=== PATIENT | male | born 1960 | race Caucasian/White ===

== ENCOUNTER 2020-08-03 11:05 | Emergency (ER) | payer BC ==
[~2020-08-03] VITALS: Ht 188 cm; Wt 95.0 kg
--- NOTE | 2020-08-03 11:12 | PHYS DOC ---
Past History Past Medical History: Arthritis (Rheumatoid) Adult General HPI HPI Patient is a pleasant 59-year-old male who presents for abdominal pain. Onset was this morning shortly after eating breakfast. Nothing known makes better, patient reports certain abdominal movements and palpation under right side of his rib cage make worse. Pain described as sharp without radiation and 5 out of 10 in severity. Timing of symptoms have been intermittent since onset, reports currently being asymptomatic. Patient called PCP and was advised to set up virtual appointment; however, patient concerned this could be his appendix prompting him to seek evaluation at our ER today. Patient denies any fever, constitutional symptoms, COVID-19 contacts, headache, chest pain, shortness of breath, nausea, vomit, diarrhea, changes in urination or bowel function, UTI- like symptoms, he has no history of kidney stones Review of Systems Review of Systems Fourteen body systems of review of systems have been reviewed. See HPI for pertinent positives and negative responses, other jin all other systems are negative, non-pertinent or non-contributory Physical Exam Physical Exam Constitutional: Well developed, well nourished, no acute distress, non-toxic appearance. HENT: Normocephalic, atraumatic, bilateral external ears normal, oropharynx moist, no oral exudates, nose normal. Eyes: PERRLA, EOMI, conjunctiva normal, no discharge. Neck: Normal range of motion, no tenderness, supple, no stridor. Cardiovascular: Heart rate regular, sinus rhythm, no murmurs rubs or gallops Lungs & Thorax: Bilateral breath sounds clear to auscultation Abdomen: Bowel sounds normal, soft, positive Herbert sign, no guarding, no rebound no masses, no pulsatile masses. Nonsurgical abdomen, no peritoneal signs Skin: Warm, dry, no erythema, no rash. Back: No tenderness, no CVA tenderness. Extremities: No tenderness, no cyanosis, no clubbing, ROM intact, no edema. Neurologic: Alert and oriented X 3, grossly normal motor & sensory function, no focal deficits noted. Psychologic: Affect normal, judgement normal, mood normal. Current Patient Data Vital Signs Vital Signs Date Time Temp Pulse Resp B/P (MAP) Pulse Ox O2 Delivery O2 Flow Rate FiO2 08/03/20 11:05 98.4 76 18 139/76 (97) 99 Room Air EKG EKG [] Radiology/Procedures Radiology/Procedures PROCEDURE: ABDOMEN LTD EXAM: Right upper quadrant abdominal Ultrasound INDICATION: Reason: RUQ and RLQ pain / Spl. Instructions: / History: TECHNIQUE: Real-time ultrasound of the right upper quadrant abdomen was performed with permanent freeze-frame documentation. COMPARISON: None FINDINGS: BILIARY:?Gallbladder is unremarkable. No biliary ductal dilatation. The common bile duct measures 0.4 cm. OTHER: Visualized liver and pancreas are unremarkable, although contrast is not well seen due to bowel gas. Liver measures 14.9 cm in length. IVC and abdominal aorta are poorly visualized also due to bowel gas. Right kidney is normal measuring 11.9 x 6.3 x 5.7 cm. IMPRESSION: Negative right upper quadrant abdominal ultrasound. No evidence of cholelithiasis or acute cholecystitis. Electronically signed by: Samuel Ott MD (08/03/2020 12:05 PM) [id number] Course & Med Decision Making Course & Med Decision Making Ambulatory well-appearing patient seen on immediate ER arrival ABCs unremarkable Comprehensive history and physical exam obtained, positive Herbert sign with concern for gallbladder pathology, discussed utility of CT but joint decision to pursue ultrasound Discussed grossly negative findings from ultrasound. Discussed this is a limited exam and might not act accurately capture acute gallbladder or appendix pathology Nonetheless, patient remained asymptomatic throughout visit today. I educated patient on importance of monitoring symptomology and following up with PCP in upcoming 1 to 10 days time I discussed potential need for outpatient diagnostic studies such as MRCP etc. to better classify patient's gallbladder tree and need for AAA screening etc. Strict return precautions discussed with good understanding by patient, all questions and concerns addressed prior to ER departure in stable condition Dragon Disclaimer Dragon Disclaimer This electronic medical record was generated, in whole or in part, using a voice recognition dictation system. Departure Departure: Impression: Primary Impression: RUQ abdominal pain Disposition: HOME/RESIDENCE PRIOR TO ADM Condition: STABLE Referrals: [facility] (PCP) Patient Instructions: Abdominal Pain Additional Instructions: You have been evaluated in the Emergency Department today for abdominal pain. Your evaluation was not suggestive of any emergent condition requiring medical intervention at this time. However, some abdominal problems make take more time to appear. Therefore, it is important for you to watch for any new symptoms or worsening of your current condition. As discussed prior to ER departure, please call your PCP and schedule follow-up in upcoming 1 to 10 days time for outpatient follow-up. You may require further outpatient diagnostic work-up if symptoms persist Return to the Emergency Department if you experience worsening pain, persistent fevers greater than 100.4, recurrent vomiting, blood in vomit, blood in stool, dark tarry stool, chest pain, difficulty breathing, or any other concerning symptoms. Justification of Admission: Justification of Admission: Justification of Admission Dx: N/A ARGELIA ELENA DO Aug 03, 2020 11:12
--- NOTE | 2020-08-03 12:08 | RAD ---
EXAM: Right upper quadrant abdominal Ultrasound INDICATION: Reason: RUQ and RLQ pain / Spl. Instructions: / History: TECHNIQUE: Real-time ultrasound of the right upper quadrant abdomen was performed with permanent freeze-frame documentation. COMPARISON: None FINDINGS: BILIARY:?Gallbladder is unremarkable. No biliary ductal dilatation. The common bile duct measures 0.4 cm. OTHER: Visualized liver and pancreas are unremarkable, although contrast is not well seen due to bowel gas. Liver measures 14.9 cm in length. IVC and abdominal aorta are poorly visualized also due to bowel gas. Right kidney is normal measuring 11.9 x 6.3 x 5.7 cm. IMPRESSION: Negative right upper quadrant abdominal ultrasound. No evidence of cholelithiasis or acute cholecystitis. Electronically signed by: Samuel Ott MD (08/03/2020 12:05 PM) [id number]
[2020-08-03 12:38] VITALS: BP 130/74
== END 2020-08-03 12:42 | disposition home or self-care (01) ==
LOC: ER 11:05
DX: R10.11 Right upper quadrant pain (principal); M06.9 Rheumatoid arthritis, unspecified
CPT/HCPCS: 76705; 99284-25

== ENCOUNTER → 2021-01-17 | Outpatient (CLI) | payer BC ==
--- NOTE | 2021-01-18 09:10 | RAD ---
CT MAXILLOFACIAL WITHOUT CONTRAST Indication: RIGHT NOSTRIL PAIN Comparison study: None. Technique: Noncontrast CT of the maxillofacial region was performed in the axial plane. Sagittal and coronal reconstructions were performed. One or more of the following dose reduction techniques were u tilized: Automated exposure control (AEC), Adjustment of mA and/or kV according to patient size, Use of iterative reconstruction technique such as ASiR, CT scan done according to ALARA and image gently/ image wisely Findings: No acute facial bone fracture. No acute osseous abnormalities are detected. The orbital alaniz are intact. The zygomatic arches are i ntact. The nasal bones are intact. Nasal septum is deviated to the right. The pterygoids are intact. The mandible is intact. The temporomandibular joints demonstrate normal alignment. Visualized portions of the paranasal sinuses are well-aerated. The visualized mastoid air cells are c lear. The orbits and globes are normal. The visualized aerodigestive tract is unremarkable. The visualized brain parenchyma is normal in attenuation. IMPRESSION: No acute facial bone fracture. No nostril mass. Electronically signed by: Alfredo Graham MD (01/18/2021 9:08 AM) [id number]
== END ==
LOC: CT 12:33
PROVIDERS: ATTEND Physician Assistant
DX: J34.2 Deviated nasal septum (principal); J01.90 Acute sinusitis, unspecified
CPT/HCPCS: 70486